=== PATIENT | male | born 1940 | race Caucasian/White ===

== ENCOUNTER 2024-08-02 12:51 | Emergency (ER) | payer OTHER ==
[~2024-08-02] VITALS: Ht 172.7 cm; Wt 72.0 kg
--- NOTE | 2024-08-02 13:08 | ED.PDOC ---
History of Present Illness HPI Comments 84 y/o M with PMHX of COPD and TIA brought in by ambulance presents to the ED with CC of generalized weakness. Per EMS, patient has been experiencing chronic generalized weakness from [id number] with symptoms worsening in the last two days. Patient states, that he has became extremely fatigued and weak with associated symptoms of SOB; which are recurrent. Patient states that he does smoke tobacco about a pack a day, denies illicit drug use or ETOH consumption. Patient denies chest pain, fever, chills, or N/V/D. No new symptoms or modifying factors at this time. Time Seen by MD: 13:00 Reviewed Notes: Nurses Notes, Emissions Testing And Repair Technician Notes, Medications, Allergies Allergies: Coded Allergies: NO KNOWN ALLERGIES (Unverified , 08/02/24) Information Source: Patient, Emergency Med Personnel Mode of Arrival: EMS Severity: Moderate Timing: Months Duration: Since onset Prehospital treatment: None Past Medical History PAST MEDICAL HISTORY: COPD, TIA Surgical History: Denies all surgeries Family History Family History: Unknown Social History Smoker: Cigarettes Alcohol: Denies ETOH Use Drugs: Denies Drug Use Lives In: Home Constitutional: reports: weakness; denies: chills, diaphoresis, fatigue, fever, malaise, sweats, others EENTM: denies: blurred vision, double vision, ear bleeding, ear discharge, ear drainage, ear pain, ear ringing, eye pain, eye redness, hearing loss, mouth pain, mouth swelling, nasal discharge, nose bleeding, nose congestion, nose pain, photophobia, tearing, throat pain, throat swelling, voice changes, others Respiratory: denies: cough, hemoptysis, orthopnea, SOB at rest, shortness of breath, SOB with excertion, stridor, wheezing, others Cardiovascular: denies: chest pain, dizzy spells, diaphoresis, Dyspnea on exertion, edema, irregular heart beat, left arm pain, lightheadedness, palpitations, PND, syncope, others Gastrointestinal: denies: abdomen distended, abdominal pain, blood streaked bowels, constipated, diarrhea, dysphagia, difficulty swallowing, hematemesis, melena, nausea, poor appetite, poor fluid intake, rectal bleeding, rectal pain, vomiting, others Genitourinary: denies: burning, dysuria, flank pain, frequency, hematuria, incontinence, penile discharge, penile sore, pain, testicle pain, testicle swelling, urgency, others Neurological: denies: dizziness, fainting, headache, left sided numbness, left sided weakness, numbness, paresthesia, pre-existing deficit, right sided numbne ss, right sided weakness, seizure, speech problems, tingling, tremors, weakness, others Musculoskeletal: denies: back pain, gout, joint pain, joint swelling, muscle pain, muscle stiffness, neck pain, others Integumetry: denies: bruises, change in color, change in hair/nails, dryness, laceration, lesions, lumps, rash, wounds, others Allergic/Immunocompromised: denies: Difficulty Healing, Frequent Infections, Hives, Itching, others Hematologic/Lymphatic: denies: anemia, blood clots, easy bleeding, easy bruising, swollen glands, others Endocrine: denies: excessive hunger, excessive sweating, excessive thirst, excessive urination, flushing, intolerance to cold, intolerance to heat, unexplained weight gain, unexplained weight loss, others Psychiatric: denies: anxiety, bipolar disorder, depression, hopeless, panic disorder, schizophrenia, sleepless, suicidal, others All Other Systems: Reviewed and Negative Physical Exam General Appearance: No Apparent Distress, Obese HEENT: Normal ENT Inspection, Pharynx Normal, TMs Normal Neck: Full Range of Motion, Non-Tender, Normal, Normal Inspection Respiratory: Chest Non-Tender, Lungs Clear, No Accessory Muscle Use, No Respiratory Distress, Normal Breath Sounds Cardiovascular: No Edema, No JVD, No Murmur, No Gallop, Normal Peripheral Pulses, Regular Rate/Rhythm Breast Exam: Deferred Gastrointestinal: No Organomegaly, Non Tender, No Pulsatile Mass, Normal Bowel Sounds, Soft Genitalia: Deferred Pelvic: Deferred Rectal: Deferred Extremities: No calf tenderness, Normal capillary refill, Normal inspection, Normal range of motion, Non-tender, No pedal edema Musculoskeletal : Apperance: Normal Neurologic: Alert, lpn rn hospice II-XII nml as Tested, Motor Weakness, Normal Affect, Normal Mood, No Sensory Deficits Cerebellar Function: Normal Reflexes: Normal Skin: Dry, Normal Color, Warm Lymphatic: No Adenopathy Was a procedure done? Was a procedure done?: No EKG EKG : Pulse Rate (adult): 88 [place]: Normal Cardiac Rhythm: NSR Block: None Hypertrophy: LAE, None ST: Normal Differential Dx Considerations may include: GENERALIZED WEAKNESS X-Ray, Labs, Meds, VS Vital Signs Date Time Temp Pulse Resp B/P (MAP) Pulse Ox O2 Delivery O2 Flow Rate FiO2 08/02/24 16:16 97.7 106 17 121/51 (74) 97 97.7 08/02/24 14:40 16 89 Nasal Cannula* 2 28 08/02/24 13:59 88 19 94 Nasal Cannula* 2 28 08/02/24 13:55 98.8 88 19 149/65 (93) 94 98.8 08/02/24 13:08 88 08/02/24 13:07 88 08/02/24 12:55 98.5 88 16 164/80 (108) 94 Lab Test 08/02/24 18:02 08/02/24 14:18 Range/Units Urine Color Yellow Yellow Urine Clarity Clear Clear Urine pH 5.5 5.0-9.0 Urine Specific [place] 1.027 1.001-1.035 Urine Protein 2+ H Negative Urine Ketones Negative Negative Urine Blood 2+ H Negative /uL Urine Nitrite Negative Negative Urine Bilirubin Negative Negative Urine Urobilinogen Normal Negative mg/dL Urine Leukocyte Esterase Negative Negative /uL Urine RBC 1 0 - 3 /hpf Urine Microscopic WBC 2 0-3 /HPF Urine Squamous Epithelial Cells Few <5 /hpf Urine Bacteria None seen None Seen /hpf Urine Mucus Few None Seen Urine Glucose Normal Normal mg/dL White Blood Count 5.6 4.4-10.8 10^3/uL Red Blood Count 5.02 4.5-5.90 10^6/uL Hemoglobin 15.7 13.5-17.5 g/dL Hematocrit 46.5 41.0-53.0 % Mean Corpuscular Volume 92.6 80.0-100.0 fL Mean Corpuscular Hemoglobin 31.3 28.0-32.0 pg Mean Corpuscular Hemoglobin Concent 33.8 32.0-36.0 g/dL Red Cell Distribution Width 14.0 11.8-14.3 % Platelet Count 208 140-450 10^3/uL Mean Platelet Volume 7.4 6.9-10.8 fL Neutrophils (%) (Auto) 78.7 37.0-80.0 % Lymphocytes (%) (Auto) 10.3 10.0-50.0 % Monocytes (%) (Auto) 10.6 0.0-12.0 % Eosinophils (%) (Auto) 0.1 0.0-7.0 % Basophils (%) (Auto) 0.3 0.0-2.0 % Neutrophils # (Auto) 4.4 1.6-8.6 10 ^3/uL Lymphocytes # (Auto) 0.6 0.4-5.4 10 ^3/uL Monocytes # (Auto) 0.6 0-1.3 10 ^3/uL Eosinophils # (Auto) 0 0-0.8 10 ^3/uL Basophils # (Auto) 0 0-0.2 10 ^3/uL Nucleated Red Blood Cells 0.2 % Sodium Level 136 136-145 mmol/L Potassium Level 4.1 3.5-5.1 mmol/L Chloride Level 103 98-107 mmol/L Carbon Dioxide Level 27 20-31 mmol/L Anion Gap 6 5-15 Blood Urea Nitrogen 12 9-23 mg/dL Creatinine 0.93 0.700-1.30 mg/dL Glomerular Filtration Rate Calc 80 >90 mL/min BUN/Creatinine Ratio 12.9 10.0-20.0 Serum Glucose 86 74-106 mg/dL Calcium Level 10.2 8.7-10.4 mg/dL Total Bilirubin 0.6 0.2-1.0 mg/dL Aspartate Amino Transferase (AST) 67 H 13-40 U/L Alanine Aminotransferase (ALT) 28 7-40 U/L Alkaline Phosphatase 64 46-116 U/L Total Protein 6.5 5.7-8.2 g/dL Albumin 4.4 3.2-4.8 g/dL Current Medications Medications (Trade) Dose Ordered Sig/Scarlet Route Start Time Stop Time Status Last Admin Sodium Chloride 500 ml @ 500 mls/hr Q1H ONCE IV 08/02/24 13:00 08/02/24 13:59 DC 08/02/24 14:19 Methylprednisolone Sodium Succinate (Solu Medrol) 125 mg ONCE ONCE IV 08/02/24 14:30 08/02/24 14:31 DC 08/02/24 14:43 Ipratropium [place] (Atrovent Medneb) 1 mg ONCE ONCE HHN 08/02/24 14:30 08/02/24 14:31 DC 08/02/24 14:44 Albuterol (Ventolin Medneb) 20 mg ONCE ONCE N 08/02/24 14:30 08/02/24 14:31 DC 08/02/24 14:44 CXR: FINDINGS: Lines and Tubes: Spinal thoracic stimulator device in-situ. Lungs: Congestion. Right lower lobe airspace disease. Pleura: No effusion. No pneumothorax. Cardiomediastinal contours: Unremarkable Bones: Unremarkable IMPRESSION: Congestion. Possible right lower lobe airspace disease. ATED BY: DANI VASQUEZ MD DICTATED DATE/TIME: 08/02/24 1323 SIGNED BY: DANI VASQUEZ MD SIGNED DATE/TIME: 08/02/24 1323 CC: HEAD CT: FINDINGS: There is no evidence of acute intracranial hemorrhage, extra-axial collection, mass effect, midline shift, herniation or hydrocephalus. The ventricles, sulci and cisterns are age appropriate. The olsen-white differentiation is intact. Patchy periventricular and subcortical white matter hypoattenuation is nonspecific but may be related to small vessel ischemic disease. Encephalomalacia in the left frontal lobe and left parietal lobe. The visualized paranasal sinuses and mastoid air cells are clear. The surrounding soft tissues and osseous structures are unremarkable. IMPRESSION: No acute intracranial abnormality. Radiation optimization: All CT scans at this facility use at least one of these dose optimization techniques: automated exposure control mA and/or kV adjustment per patient size (includes targeted exams where dose is matched to clinical indication) or iterative reconstruction. ATED BY: DANI VASQUEZ MD DICTATED DATE/TIME: 08/02/24 1322 SIGNED BY: DANI VASQUEZ MD SIGNED DATE/TIME: 08/02/24 1322 CC: The patient's CBC and chemistry panel are within normal limits The urine test is negative At this time, the patient is being discharged The urine test is negative The patient will follow up with the primary care doctor The patient will return to the emergency department's the condition worsens. We did contact the [facility] physician and he is going to discharge the patient to follow up with the primary care doctor Time of 1ST Reevaluation: 13:30 Reevaluation 1ST: Unchanged Patient Education/Counseling: Diagnosis, Treatment, Prognosis, Need For Follow Up Family Education/Counseling: No Family Present Departure 1 Departure Time of Disposition: 21:24 Impression: Primary Impression: Generalized weakness Disposition: 01 HOME / SELF CARE / HOMELESS Condition: Fair Discharged With: Self Critical Care Note Critical Care Time?: No Stability Stability form required: No Heart Score Heart Score: Heart Score Response (Comments) Value History N/A 0 EKG N/A 0 Age N/A 0 Risk Factors N/A 0 Troponin N/A 0 Total 0 I personally scribed for FAYE ARMAS MD ([email or web address]) on 08/02/24 at 13:08. Electronically submitted by Christiane Pelayo ([employer]). I personally scribed for FAYE ARMAS MD ([email or web address]) on 08/02/24 at 13:31. Electronically submitted by Christiane Pelayo ([employer]). I personally scribed for FAYE ARMAS MD ([email or web address]) on 08/02/24 at 13:32. Electronically submitted by Christiane Pelayo ([employer]). FAYE ARMAS MD Aug 02, 2024 13:08
--- NOTE | 2024-08-02 13:25 | DVH ---
EXAM: CT HEAD WITHOUT CONTRAST INDICATION: fall, trauma, pain TECHNIQUE: CT of the head without intravenous contrast. Radiation Dose : 1. Head: CT Dose: CTDI volume is 64.74 mGy. Dose-length product is 1405.03 mGy*cm The dose indicators for CT are the volume Computed Tomography (CT) Dose Index (CTDIvol) and the Dose Length Product (DLP), and are measured in units of mGy and mGy-cm, respectively. These indicators are not patient dose, but values generated from the CT scanner acquisition factors. The report includes radiation exposure data for exposures received during this examination. COMPARISON: None FINDINGS: There is no evidence of acute intracranial hemorrhage, extra-axial collection, mass effect, midline s hift, herniation or hydrocephalus. The ventricles, sulci and cisterns are age appropriate. The olsen-white differentiation is intact. Patchy periventricular and subcortical white matter hypoattenuation is nonspecific but may be related to small vessel ischemic disease. Encephalomalacia in the left frontal lobe and left parietal lobe. The visualized paranasal sinuses and mastoid air cells are clear. The surrounding soft tissues and osseous structures are unremarkable. IMPRESSION: No acute intracranial abnormality. Radiation optimization: All CT scans at this facility use at least one of these dose optimization malena hniques: automated exposure control mA and/or kV adjustment per patient size (includes targeted exam s where dose is matched to clinical indication) or iterative reconstruction.
--- NOTE | 2024-08-02 13:25 | DVH ---
CHEST RADIOGRAPH Indication: weakness Technique: Single frontal view of the chest was obtained COMPARISON: None FINDINGS: Lines and Tubes: Spinal thoracic stimulator device in-situ. Lungs: Congestion. Right lower lobe airspace disease. Pleura: No effusion. No pneumothorax. Cardiomediastinal contours: Unremarkable Bones: Unremarkable IMPRESSION: Congestion. Possible right lower lobe airspace disease.
[2024-08-02 13:59] VITALS: PULSE 88; RESP 19; O2SAT 94
[2024-08-02] MEDS: SODIUM CHLORIDE 0.9% 500 ML IV ONE (14:19)
[2024-08-02] MEDS: methylPREDNISolone SOD SUCC 125 MG/2 ML VL IV ONE (14:43)
[2024-08-02] MEDS: IPRATROPIUM BROM 0.5 MG/2.5ML INH SOL HHN ONE (14:44)
[2024-08-02] MEDS: ALBUTEROL SULF 2.5 MG/0.5ML(0.5%) NEB SOLN HHN ONE (14:44)
[2024-08-02 15:00] LABS: Basophils # (auto) 0 10 ^3/uL (0-0.2); Basophils % (auto) 0.3 % (0.0-2.0); Eosinophils # (auto) 0 10 ^3/uL (0-0.8); Eosinophils % (auto) 0.1 % (0.0-7.0); Hematocrit 46.5 % (41.0-53.0); Hemoglobin 15.7 g/dL (13.5-17.5); Lymphocytes # (auto) 0.6 10 ^3/uL (0.4-5.4); Lymphocytes % (auto) 10.3 % (10.0-50.0); Mean Corpuscular Hemoglobin 31.3 pg (28.0-32.0); Mean Corpuscular Hgb Conc. 33.8 g/dL (32.0-36.0); Mean Corpuscular Volume 92.6 fL (80.0-100.0); Monocytes # (auto) 0.6 10 ^3/uL (0-1.3); Monocytes % (auto) 10.6 % (0.0-12.0); Neutrophils # (auto) 4.4 10 ^3/uL (1.6-8.6); Neutrophils % (auto) 78.7 % (37.0-80.0); Nucleated Red Blood Cells % 0.2 %; Platelet Count (auto) 208 10^3/uL (140-450); Red Blood Cells 5.02 10^6/uL (4.5-5.90); White Blood Cell 5.6 10^3/uL (4.4-10.8)
[2024-08-02 15:06] LABS: Alanine Aminotransferase 28 U/L (7-40); Albumin 4.4 g/dL (3.2-4.8); Alkaline Phosphatase 64 U/L (46-116); Anion Gap 6 (5-15); BUN/Creatinine Ratio 12.9 (10.0-20.0); Bilirubin, Total 0.6 mg/dL (0.2-1.0); Blood Urea Nitrogen 12 mg/dL (9-23); Calcium 10.2 mg/dL (8.7-10.4); Carbon Dioxide 27 mmol/L (20-31); Chloride 103 mmol/L (98-107); Glucose 86 mg/dL (74-106); Potassium 4.1 mmol/L (3.5-5.1); Sodium 136 mmol/L (136-145); Total Protein 6.5 g/dL (5.7-8.2)
[2024-08-02 15:09] LABS: Aspartate Aminotransferase 67 U/L (13-40)
--- NOTE | 2024-08-02 15:13 | ECG ---
[facility] Test Date: 2024-08-02 Test Time: 12:50:02 Pat Name: NOY SARABIA Department: ER Room: Gender: M Electronic Lab Technician: IC : [id number] Requested By: FAYE ARMAS Order Number: [id number] Reading MD: Levy Min Measurements Intervals [place] Rate: 88 P: 53 MO: 173 QRS: 67 QRSD: 113 T: 47 QT: 362 QTc: 438 Interpretive Statements Sinus rhythm LAE, consider biatrial enlargement Borderline intraventricular conduction delay Minimal ST elevation, anterior leads Electronically Signed On 08-04-2024 16:39:15 PST by Levy Min Please click the below link to view image of tracing.
[2024-08-02 19:50] LABS: Urine Bacteria None Seen /hpf (None Seen)
[2024-08-02 20:05] LABS: Urine Blood 2+ /uL (Negative); Urine Clarity Clear (Clear); Urine Color Yellow (Yellow); Urine Mucus FEW (None Seen); Urine Protein, UAD 2+ (Negative); Urine Specific Gravity 1.027 (1.001-1.035); Urine Squamous Epithelial Cell FEW /hpf (<5); Urine Urobilinogen Normal (Negative); Urine WBC 2 /HPF (0-3); Urine pH 5.5 (5.0-9.0)
[2024-08-03 07:31] LABS: COVID19 ANTIGEN SOFIA FIA NEGATIVE (NEGATIVE)
[2024-08-03 07:32] LABS: Rapid Influenza B Negative (Negative)
[2024-08-03 07:34] LABS: Rapid Influenza A Positive (Negative)
[2024-08-03] MEDS ORDERED: OSEL75CA5 PO (07:45)
--- NOTE | 2024-08-03 07:47 | DVHDS2 ---
Discharge Summary Date of Admission Date of Discharge: Aug 03, 2024 Labs/Diagnostic Data: Laboratory Results Test 08/03/24 06:45 08/02/24 18:02 08/02/24 14:18 Influenza Type A Antigen Positive (Negative) Influenza Type B Antigen Negative (Negative) SARS-CoV-2 Antigen (Rapid) Negative (NEGATIVE) Urine Color Yellow (Yellow) Urine Clarity Clear (Clear) Urine pH 5.5 (5.0-9.0) Urine Specific [place] 1.027 (1.001-1.035) Urine Protein 2+ (Negative) Urine Ketones Negative (Negative) Urine Blood 2+ /uL (Negative) Urine Nitrite Negative (Negative) Urine Bilirubin Negative (Negative) Urine Urobilinogen Normal mg/dL (Negative) Urine Leukocyte Esterase Negative /uL (Negative) Urine RBC 1 /hpf (0 - 3) Urine Microscopic WBC 2 /HPF (0-3) Urine Squamous Epithelial Cells Few /hpf (<5) Urine Bacteria None seen /hpf (None Seen) Urine Mucus Few (None Seen) Urine Glucose Normal mg/dL (Normal) White Blood Count 5.6 10^3/uL (4.4-10.8) Red Blood Count 5.02 10^6/uL (4.5-5.90) Hemoglobin 15.7 g/dL (13.5-17.5) Hematocrit 46.5 % (41.0-53.0) Mean Corpuscular Volume 92.6 fL (80.0-100.0) Mean Corpuscular Hemoglobin 31.3 pg (28.0-32.0) Mean Corpuscular Hemoglobin Concent 33.8 g/dL (32.0-36.0) Red Cell Distribution Width 14.0 % (11.8-14.3) Platelet Count 208 10^3/uL (140-450) Mean Platelet Volume 7.4 fL (6.9-10.8) Neutrophils (%) (Auto) 78.7 % (37.0-80.0) Lymphocytes (%) (Auto) 10.3 % (10.0-50.0) Monocytes (%) (Auto) 10.6 % (0.0-12.0) Eosinophils (%) (Auto) 0.1 % (0.0-7.0) Basophils (%) (Auto) 0.3 % (0.0-2.0) Neutrophils # (Auto) 4.4 10 ^3/uL (1.6-8.6) Lymphocytes # (Auto) 0.6 10 ^3/uL (0.4-5.4) Monocytes # (Auto) 0.6 10 ^3/uL (0-1.3) Eosinophils # (Auto) 0 10 ^3/uL (0-0.8) Basophils # (Auto) 0 10 ^3/uL (0-0.2) Nucleated Red Blood Cells 0.2 % Sodium Level 136 mmol/L (136-145) Potassium Level 4.1 mmol/L (3.5-5.1) Chloride Level 103 mmol/L (98-107) Carbon Dioxide Level 27 mmol/L (20-31) Anion Gap 6 (5-15) Blood Urea Nitrogen 12 mg/dL (9-23) Creatinine 0.93 mg/dL (0.700-1.30) Glomerular Filtration Rate Calc 80 mL/min (>90) BUN/Creatinine Ratio 12.9 (10.0-20.0) Serum Glucose 86 mg/dL (74-106) Calcium Level 10.2 mg/dL (8.7-10.4) Total Bilirubin 0.6 mg/dL (0.2-1.0) Aspartate Amino Transferase (AST) 67 U/L (13-40) Alanine Aminotransferase (ALT) 28 U/L (7-40) Alkaline Phosphatase 64 U/L (46-116) Total Protein 6.5 g/dL (5.7-8.2) Albumin 4.4 g/dL (3.2-4.8) Other Laboratory Tests 08/02/24 14:18 Brief Hx & Hospital Course: Patient is a 84-year-old male who presents with complaints of generalized weakness over the past 2 days that have progressively worsened. Patient notes he is unable to ambulate given his weakness. Patient presented to the ER with vitals within normal limits with the exception of hypoxia requiring 2 L nasal cannula. CBC did not reveal any leukocytosis. CMP was within normal limits. Patient was noted to test positive for influenza A. Chest x-ray was done which showed some congestion with right lower lobe airspace disease. Patient was discharged on Tamiflu 75 mg p.o. twice daily x 5 days, Augmentin for 7 days for pneumonia coverage given right lower lobe consolidation, furosemide 20 mg daily for 3 days due to concern for underlying pulmonary vascular congestion. Patient is to be discharged to SNF for further physical therapy given generalized weakness. Patient has pending cardiology referral placed outpatient. Patient discharged in stable condition. Plan discussed with son and patient at bedside were in agreement with the plan. [facility] case management to arrange follow-up appointments. Condition at Discharge: Good Final Diagnosis/Problems List Generalized Weakness due to Influenza A Secondary Diagnosis: Acute Respiratory Failure, Hypoxic Discharge Disposition: [facility] Facility Discharge Instruct/Medications Diet: Regular Activity: No Restrictions, As Tolerated Medications: Tamiflu 75mg PO BID for 5 days Discharge Statement: "Patient was advised to return to the ER or call 911 if any headaches, dizziness, shortness of breath, chest pain, abdominal pain, bleeding, fevers, or worsening of medical condition. Patient was counseled about treatment plan, medications, possible side effects, patientverbalized understanding. All questions were answered to the best of my ability. This discharge took greater then 30 minutes in planning, reviewing documentation, counseling the patient, and discussing with other team members." ASSESSMENT ASSESSMENT Assessment Generalized Weakness due to Influenza A KYLEIGH DIAZ DO Aug 03, 2024 07:47
[2024-08-03 08:00] VITALS: RESP 14; TEMP 98; O2SAT 94
[2024-08-03] MEDS: OSELTAMIVIR 75 MG CAP PO ONE (09:48)
[2024-08-03] MEDS ORDERED: AUG875T PO (14:07)
[2024-08-03] MEDS ORDERED: FURO20TA4 GT (14:08)
[2024-08-03] MEDS: FUROSEMIDE 40 MG/4 ML VIAL IV ONE (15:23)
[2024-08-03 15:47] VITALS: BP 130/61; PULSE 75; RESP 18; O2SAT 95
== END 2024-08-03 16:03 | disposition home or self-care (01) ==
LOC: EDBD 12:51 → ER 12:51
DX: J96.01 Acute respiratory failure with hypoxia (principal); R53.1 Weakness; J44.9 Chronic obstructive pulmonary disease, unspecified; J10.1 Influenza due to other identified influenza virus with other respiratory manifestations; F17.210 Nicotine dependence, cigarettes, uncomplicated; Z86.73 Personal history of transient ischemic attack (TIA), and cerebral infarction without residual deficits; Z20.822 Contact with and (suspected) exposure to COVID-19
CPT/HCPCS: 36415; 70450; 71045; 80053; 81001; 85025; 87426; 87804; 93005; 94644; 96361; 96374; 96375; 99285; J1940; J2919; J7040; 94640